=== PATIENT | female | born 2000 | race Caucasian/White ===

== ENCOUNTER 2018-04-25 15:11 | Emergency (ER) | payer MEDICARE ==
[~2018-04-25] VITALS: Ht 147.3 cm; Wt 43.6 kg
[2018-04-25 15:19] VITALS: BP 111/71
[2018-04-25 15:53] VITALS: BP 109/69
== END 2018-04-25 15:53 | disposition home or self-care (01) ==
LOC: MED 15:11
DX: R42 Dizziness and giddiness (principal)
CPT/HCPCS: 81002; 81025; 99282